=== PATIENT | male | born 1960 ===

== ENCOUNTER → 2021-09-08 | Outpatient (CLI) | payer OTHER ==
--- NOTE | 2021-09-08 12:18 | MR ---
EXAMINATION TYPE: MR lumbar spine wo con DATE OF EXAM: 09/08/2021 COMPARISON: None HISTORY: 60-year-old male Low back pain, balance issues, numbness in legs TECHNIQUE: Multiplanar, multisequence images of the lumbar spine were acquired without IV contrast. FINDINGS: There is a congenital spinal canal stenosis. [place] AP canal dimension of 1.0 cm. There is superimposed moderate multilevel degenerative disc disease with desiccated, narrowed, and bu lging discs as well as multilevel ligamentum flavum thickening and hypertrophic facet arthropathy. Straightening of the normal lumbar lordosis but with preserved alignment. Scattered chronic endplate Schmorl's nodes are noted. Vertebral body heights are preserved. Conus medullaris is normal. At T12-L1, no spinal canal or neuroforaminal stenosis. At L1-L2, diffuse disc bulge causing mild overall spinal canal stenosis. No significant neuroforamina l stenosis. At L2-L3, congenital spinal canal stenosis with ligamentum flavum thickening and disc bulge. Mild to moderate overall spinal canal stenosis. Along with facet arthropathy, changes result in mild right ne uroforaminal stenosis. At L3-L4, there is congenital spinal canal stenosis with ligamentum flavum thickening, diffuse disc b ulge, and hypertrophic facet arthropathy. Changes are greater towards the right with a right lateral recess stenosis, moderate spinal canal stenosis, moderate right and [id number] left neuroforami nal stenosis. At L4-L5, congenital spinal canal stenosis with disc bulge, hypertrophic facet arthropathy, ligamentu m flavum thickening causing severe focal spinal canal stenosis with loss of the CSF signal and some n erve root clumping noted. There is severe right and mild left neuroforaminal stenosis. At L5-S1, disc bulge with hypertrophic facet arthropathy. Changes result in severe left and moderate right neuroforaminal stenosis. Mild overall narrowing of the spinal canal. No prevertebral or paravertebral soft tissue abnormality. No suspicious bone marrow replacement. Some scattered fatty Modic type II endplate changes noted. IMPRESSION: 1. Moderate multilevel degenerative disc disease superimposed on a congenital spinal canal stenosis o f the lumbar spine ([place] AP canal dimension of 1 cm) along with hypertrophic facet arthropathy and ligamentum flavum thickening. 2. Changes result in overall severe spinal canal stenosis at L4-L5 with loss of CSF signal. There is some clumping of nerve roots at this level as well that could represent arachnoiditis. Severe right a nd mild left neuroforaminal stenosis here. 3. Overall moderate spinal canal stenosis at L3-L4 along with right lateral recess stenosis and moder ate right neuroforaminal stenosis. 4. Mild to moderate overall spinal canal stenosis at L2-L3, mild at L1-L2, and mild at L5-S1. 5. Severe left and moderate right neuroforaminal stenosis at L5-S1.
== END | disposition home or self-care (01) ==
LOC: RADMRIMAIN 11:24
PROVIDERS: ATTEND Family Medicine
DX: M51.36 Other intervertebral disc degeneration, lumbar region (principal); M48.061 Spinal stenosis, lumbar region without neurogenic claudication; M99.73 Connective tissue and disc stenosis of intervertebral foramina of lumbar region
CPT/HCPCS: 72148

== ENCOUNTER → 2022-07-26 | Outpatient (CLI) | payer OTHER ==
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
== END | disposition home or self-care (01) ==
LOC: RADMRIMAIN 10:55
PROVIDERS: ATTEND Family Medicine
DX: M47.812 Spondylosis without myelopathy or radiculopathy, cervical region (principal); M50.323 Other cervical disc degeneration at C6-C7 level
CPT/HCPCS: 72141